=== PATIENT | female | born 1935 | race Two or more races ===

== ENCOUNTER 2022-06-20 10:41 | Inpatient (IN) | payer OTHER ==
[~2022-06-20] VITALS: Ht 167.6 cm; Wt 55.1 kg
[2022-06-20] VITALS (8 sets, daily range): BP systolic 132–152; BP diastolic 65–91
[~2022-06-20 10:41] MED LIST: APIX2.5T PO; FURO20TA3 PO; LEVO88TA PO; LOSA100T33 PO; LOVA20TA4 PO; PANT40TA2 PO; POTA10TA51 PO
[2022-06-20] MEDS ORDERED: LIDOCAINE 2%HCL (LOCAL ANESTH.) INJ 20ML MDV ONE (15:49)
[2022-06-20] MEDS ORDERED: IOHEXOL 350 MG/ML 100ML IJ ONE (15:50)
[2022-06-20] MEDS ORDERED: MIDAZOLAM HCL 2MG/2ML 2ml VIAL (1mg/ml) ONE (15:54)
[2022-06-20] MEDS ORDERED: fentaNYL CITRATE 100 MCG/2 ML VL ONE (15:56)
[2022-06-20] MEDS ORDERED: diphenhdrAMINE HCL 50 MG/1 ML VL ONE (15:59)
[2022-06-20] MEDS ORDERED: FAMOTIDINE (10MG/ML) 2ML VL IV ONE (15:59)
[2022-06-20] MEDS ORDERED: VANCOMYCIN HCL 1000 MG VL ONE (16:00)
[2022-06-20] MEDS ORDERED: VANCOMYCIN 1GM/250ML 250 ML IV ONE (16:00)
[2022-06-20] MEDS ORDERED: methylPREDNISolone SOD SUCC 125 MG/2 ML VL ONE (16:01)
[2022-06-20] MEDS ORDERED: hydrALAZINE HCL 20 MG/ML VL ONE (16:08)
[2022-06-20] MEDS ORDERED: MORPHINE SULFATE INJ 2 MG/ml SYRG IV PRN (17:15)
[2022-06-21 04:41] VITALS: BP 131/60
[2022-06-21 08:00] VITALS: BP 128/57
[2022-06-21 09:00] VITALS: BP 128/57
[2022-06-21] MEDS ORDERED: DOXYCYCLINE 100 MG TAB/CAP PO ONE (09:00)
[2022-06-21] MEDS ORDERED: VANCOMYCIN 1GM/250ML 250 ML IV SCH (10:00)
[2022-06-21 12:25] VITALS: BP 128/57
== END 2022-06-21 13:06 | disposition home or self-care (01) | DRG 244 ==
LOC: CATH 10:41 → TELE 17:18 → TELE-WESTW 18:45
PROVIDERS: ADMIT Specialist; ATTEND Specialist
PROC: 0JH606Z Insertion of Pacemaker, Dual Chamber into Chest Subcutaneous Tissue and Fascia, Open Approach (ICD-10-PCS; principal; 2022-06-20)
PROC: 02H63JZ Insertion of Pacemaker Lead into Right Atrium, Percutaneous Approach (ICD-10-PCS; 2022-06-20)
PROC: 02HK3JZ Insertion of Pacemaker Lead into Right Ventricle, Percutaneous Approach (ICD-10-PCS; 2022-06-20)
PROC: B5171ZZ Fluoroscopy of Left Subclavian Vein using Low Osmolar Contrast (ICD-10-PCS; 2022-06-20)
DX: I49.5 Sick sinus syndrome (principal); I48.0 Paroxysmal atrial fibrillation; Z20.822 Contact with and (suspected) exposure to COVID-19; Z88.1 Allergy status to other antibiotic agents; Z91.041 Radiographic dye allergy status
CPT/HCPCS: 33208; 71045; 75820; 93005; 99152; 99153; C1785; G0378; J2250; J3490

== ENCOUNTER 2023-08-05 06:50 | Day surgery (SDC) | payer OTHER ==
[2023-08-05] VITALS (8 sets, daily range): BP systolic 119–168; BP diastolic 56–78; PULSE 60–62; RESP 12–18; TEMP 97.8; O2SAT 92–98
[~2023-08-05] VITALS: Ht 167.6 cm; Wt 54.9 kg
[~2023-08-05 06:50] MED LIST changes: +AMIO100T3 PO; +FERR-7 PO; -LOSA100T33 PO; -LOVA20TA4 PO; +METO25TA93 PO; +POTA99TA3 PO; +ROSU5TAB5 PO; +[UNRECOGNIZED DRUG - CODE] PO
[2023-08-05] MEDS ORDERED: HEPARIN IN NS 1000Units/500mL 1,500 ML ONE (08:10)
[2023-08-05] MEDS ORDERED: LIDOCAINE 2%HCL (LOCAL ANESTH.) INJ 20ML MDV ONE ×2 (08:10→08:57)
[2023-08-05] MEDS ORDERED: IODIXANOL 320MG/ML 100ML BTL IV ONE ×2 (08:10→08:57)
[2023-08-05] MEDS ORDERED: fentaNYL CITRATE 100 MCG/2 ML VL ONE (08:59)
[2023-08-05] MEDS ORDERED: HEPARIN SODIUM (PORCINE) 5000 UNITS/ML 1ML VIAL ONE (08:59)
[2023-08-05] MEDS ORDERED: ANGIOMAX 250 MG VIAL IV ONE (08:59)
[2023-08-05] MEDS ORDERED: VERAPAMIL 2.5MG/ML INJ 2ML VIAL IV ONE (08:59)
[2023-08-05] MEDS ORDERED: MIDAZOLAM HCL 2MG/2ML 2ml VIAL (1mg/ml) ONE (09:00)
[2023-08-05] MEDS ORDERED: SODIUM CHL 0.9% 0 ML ONE (09:00)
[2023-08-05] MEDS ORDERED: diphenhdrAMINE HCL 50 MG/1 ML VL ONE (09:13)
[2023-08-05] MEDS ORDERED: methylPREDNISolone SOD SUCC 125 MG/2 ML VL ONE (09:13)
[2023-08-05] MEDS ORDERED: FAMOTIDINE (10MG/ML) 2ML VL IV ONE (09:13)
== END 2023-08-05 11:30 | disposition home or self-care (01) ==
LOC: CATH 06:50
PROVIDERS: ATTEND Internal Medicine Cardiovascular Disease
DX: I25.10 Atherosclerotic heart disease of native coronary artery without angina pectoris (principal); R06.09 Other forms of dyspnea; I48.0 Paroxysmal atrial fibrillation; I49.5 Sick sinus syndrome; I12.9 Hypertensive chronic kidney disease with stage 1 through stage 4 chronic kidney disease, or unspecified chronic kidney disease; J44.9 Chronic obstructive pulmonary disease, unspecified; E03.9 Hypothyroidism, unspecified; Z95.0 Presence of cardiac pacemaker; Z79.899 Other long term (current) drug therapy; Z98.890 Other specified postprocedural states
CPT/HCPCS: 93458; C1725; C1769; C1887; C1894; J1200; J1644; J2250; J2930; J3010; J3490; J7030; Q9967; 99152